=== PATIENT | male | born 1990 | race Two or more races ===

== ENCOUNTER 2017-07-10 16:26 | Emergency (ER) | payer MEDICAID, OTHER ==
[~2017-07-10] VITALS: Ht 185.4 cm; Wt 88.5 kg
[2017-07-10 18:23] VITALS: BP 149/81
[2017-07-10] MEDS ORDERED: BACITRACIN TOP OINT 1 UD PKG TOP ONE ×2 (19:37→20:00)
== END 2017-07-10 20:02 | disposition home or self-care (01) ==
LOC: ER 16:36
DX: R55 Syncope and collapse (principal); R11.0 Nausea; V86.06XA Driver of dirt bike or motor/cross bike injured in traffic accident, initial encounter; Y93.I9 Activity, other involving external motion; Y99.8 Other external cause status; Y92.89 Other specified places as the place of occurrence of the external cause
CPT/HCPCS: 70450; 71046; 72125; 73130; 74176; 99284; J7030